=== PATIENT | male | born 1970 | race Caucasian/White ===

== ENCOUNTER 2021-07-05 02:09 | Day surgery (SDC) | payer OTHER, SELFPAY ==
[2021-07-02 10:04] VITALS: BMI 33.3
--- NOTE | 2021-07-02 10:13 | PC.NURSE ---
Report to the Outpatient Waiting Room, entrance under the green pavilion located off [facility], at time 1000 on date 07/05/21. OR Time: 1200. - You and your visitor will be asked a series of questions to screen for COVID 19 for your protection. - A mask is required within the hospital. One visitor will be allowed to accompany the patient into the hospital. Patients visitor will be instructed to remain with patient at all times or leave the building. We will allow the visitor to come back to the postoperative area when patient is ready. Preoperative COVID Testing Requirements: BEING DONE 07/02 AND SENDING RESULTS No COVID Test needed if: (proof is required; if not received patient will have Rapid Test prior to entry) - Patient has received COVID Vaccine at least 14 days prior to procedure date or - Patient has positive COVID test result within last 90 days of surgery date. COVID Test needed if above criteria is not met If not COVID vaccinated a COVID test must be conducted within 72 hours of surgery and patient is asked to isolate self from time of testing until procedure. You will go to the [facility] for your COVID testing. The [facility] site is located at the corner of [address] [facility]. You will only be called if COVID results are positive and your surgeon may reschedule your elective surgery date. Patients may have clear liquids (water, carbonated beverages, clear teas, apple juice) until 3 hours prior to surgery with a maximum of 20 ounces. - No food from midnight until time of surgery Take the following medications with a SIP of water the morning of surgery: BACTRIM Medications to discontinue per physician: N/A Date to take last dose: N/A Please no make-up, nail [place], hairspray, perfume, deodorant, or body powder the day of surgery. No jewelry (including any body piercings) or valuables the day of surgery, leave them at home. Please take a shower or bath the night before, or the morning of, surgery with an antibacterial soap. Wear comfortable, loose fitting clothing. - Jewelry must be removed prior to entering the operating room. Rings and piercings that are not removed may be cut off. - The hospital will not accept responsibility for valuables. - Please leave all valuables, including medications, at home the day of surgery. If you are going home after surgery, a licensed services delivery driver must drive you home. - NO public transportation without another adult. - We recommend that an adult stay with you for 24 hours following discharge. - We also recommend that you do not drive, make important decision, drink alcoholic beverages, or take any drugs that were not prescribed by your health care provider for at least 24 hours after your discharge time. Follow any additional instructions given to you from your surgeon. Telephone instructions given to RADHA STEPHENS and asked if any additional questions and then verbalized understanding. Patient advised to call surgeon office or pre surgery nurse liaison [phone] if any additional questions.
[2021-07-05] VITALS (7 sets, daily range): BP systolic 120–168; BP diastolic 68–105; PULSE 71–93; RESP 10–16; TEMP 36.1–36.3; O2SAT 95–100
[2021-07-05] MEDS: LACTATED RINGERS 1,000 ML 30 ML IV CONT ×2 (10:45→13:18)
--- NOTE | 2021-07-05 10:52 | WPDANESEPPF ---
Anes - Initial Pre Proc Eval Procedure: Operation Date: 07/05/21 12:00 Proposed Procedures p Excision Complicated Pilonidal Cyst - Fco English DO Date/Time: 07/05/21 10:52 Surgeon: Fco English DO Pre Op Diagnosis: pilonidal cyst Patient Data Age: 51 Gender: M Height: 1.88 m Weight: 120 kg Last Vital Signs Temp 36.3 C L 07/05/21 10:45 Pulse 93 07/05/21 10:45 Resp 16 07/05/21 10:45 Pulse Ox 97 07/05/21 10:45 Allergies Allergy/AdvReac Type Severity Reaction Status Date / Time No Known Allergies Allergy Verified 07/05/21 10:25 Home Medications Medication Instructions Recorded Confirmed Type sildenafil 100 mg tablet 100 mg PO DAILY PRN #10 tablet 05/01/21 07/02/21 Rx testosterone cypionate 200 mg/mL 150 mg IM WEEKLY #10 ml 05/03/21 07/02/21 Rx intramuscular oil sulfamethoxazole 800 1 tablet PO Q12H #14 tablet 06/17/21 07/02/21 Rx mg-trimethoprim 160 mg tablet Patient hx anesthesia problems: none Family hx anesthesia problems: none Results Review: All pre-operative results and documents have been reviewed as part of the pre-operative evaluation. FOR[facility]LY [facility] Past Medical History Medical History BMI 33.0-33.9,adult Surgical History Surgical History History of hip replacement, total History of surgical removal of pilonidal cyst Family History Family History Father Lung disease Mother Diabetes mellitus Other Cerebrovascular accident Social History Social History Smoking packs per day: 1 Smoking cigarettes per day: 20.0 Years smoked: 15 Smoking pack-years: 15.00 Smoking status: Current some day smoker Tobacco type: cigarettes and e-cigarettes/vaping Alcohol intake: former Alcohol use details: QUIT 2020 Substance use: never Substance use type: does not use Living arrangements: with family 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 Gender identity (if verbalized by the patient): Male Sexual Orientation (if Verbalized by the Patient): Straight or Heterosexual Spiritual care concerns: No Agree to blood products: Yes Dulce - Cayla Final PreProcedure Day of Procedure 07/05/21 10:52 Patient weight: obese Heart: regular rate and rhythm Lungs: clear to auscultation and normal air movement Airway: Mallampati scale class II Neurological: alert and oriented Last oral intake: >/= 8 hours ASA classification: II Emergent: no Anesthetic plan: proceed Anesthesia type and monitoring: general ETT and standard monitoring Results Review: All pre-operative results and documents have been reviewed as part of the pre-operative evaluation. Informed Consent: The patient's anesthetic plan and its attendant risks and benefits were discussed with the patient/family/POA. Questions were solicited and answers provided to the satisfaction of the patient/family/POA.
--- NOTE | 2021-07-05 11:48 | WPDHPUPDATE1 ---
History and Physical Update Update Date/Time: 07/05/21 11:48 History and Physical has been reviewed, including an updated exam of the patient. There are NO changes in the patient's condition. Risks, benefits, and alternatives have been discussed and questions answered. Patient agrees to proceed with procedure.
[2021-07-05] MEDS: BUPIVACAINE/EPINEPHRINE 0.25% 10 ML VIAL 30 ML INFILTRATE (12:30)
--- NOTE | 2021-07-05 13:23 | W.PM.PROC2 ---
Procedure Note - Detailed Date of Procedure 07/05/21 Pre-op Diagnosis pilonidal cyst Post-op Diagnosis Same Procedure Performed Excision of complicated pilonidal cyst Surgeon Fco English, DO Anesthesia General and Local ( 0.5% bupivacaine with epinephrine) Indications This is a 51-year-old man who presents with intermittent drainage from a wound near his tailbone for the past 6-8 months. He has not required incision and drainage, but does state that this opens and drains on its frequently. He has had other cysts in other locations and has required excision before. Discussions were made with the patient about his treatment options and decision was made to proceed with excision of complicated pilonidal cyst. Findings The pilonidal cyst was completely excised. Patient had a sinus tract along the midline intergluteal cleft. The lacrimal probe was advanced into the sinus tract and this it appeared to be advancing were prior abscess drainage was noted. A wide excision was made to encompass this entire area. The total length of the incision was about 2 in long. No other tracking or other sinus tracts were observed. The specimen was sent to the lab for pathology. Description of Procedure Procedure as well as risks, benefits, and alternatives were discussed with the patient. Written consent was obtained and placed in chart prior to procedure. Patient was brought back to surgical suite. He was placed supine on operating table. Time-out was done to confirm patient and procedure. he was then intubated by the Anesthesia Department. he was then repositioned to prone jane-knife position on the operating table. his sacral region was prepped and draped in sterile fashion using Betadine prep. 0.5% bupivacaine with epinephrine was infiltrated locally around the pilonidal cyst. Lacrimal probes were used to identify the sinus tracts and probed for the directions that they were tracking. An elliptical incision was then made using a 10 blade scalpel to encompass the entire area. Electrocautery was used for hemostasis and for dissection down deep to the cyst cavity. Careful dissection was made around the entire cyst to excise it completely intact. The cyst was completely removed and sent to the lab for pathology. The wound bed was then inspected. Hemostasis was achieved with electrocautery. A 0.5% bupivacaine with epinephrine was infiltrated deep in the cavity. The wound bed was then irrigated with sterile saline. No other abnormalities were noted. The deep tissue was then reapproximated using 0 Vicryl simple interrupted sutures. The skin edges were then reapproximated using 2 0 Prolene vertical mattress interrupted sutures placed approximately 1 cm apart. Fluff gauze, ABD pad, and Medipore tape were then applied. The patient was then awakened from anesthesia, extubated, and transferred to recovery. Estimated Blood Loss 5 Packing No Pathology Yes ( pilonidal cyst) Complications No immediate complications Condition Stable Disposition Same day
[2021-07-05] MEDS: fentaNYL CITRATE INJ (*CRX) 100 MCG/2 ML VIAL 25 MCG IV PUSH ×2 (13:35→13:44)
== END 2021-07-05 14:45 | disposition home or self-care (01) ==
PROVIDERS: PCP Family Medicine; Visit Provider Surgery
PROC: (CPT 11772; principal; 2021-07-05 12:00)
DX: L05.91 Pilonidal cyst without abscess (principal); F17.210 Nicotine dependence, cigarettes, uncomplicated; F17.290 Nicotine dependence, other tobacco product, uncomplicated; E66.9 Obesity, unspecified; Z68.34 Body mass index [BMI] 34.0-34.9, adult
CPT/HCPCS: 11772; 88305; A9270; J0330; J2250; J2405; J2704; J2710; J3010; J7120

== ENCOUNTER 2021-11-07 16:16 | Outpatient (CLI) | payer OTHER, SELFPAY ==
[2021-11-07 16:47] LABS: Hematocrit 50.1 % (42.0-52.0); Hemoglobin 16.4 g/dL (14.0-18.0); Mean Corpuscular HGB Conc 32.7 g/dl (32-36); Mean Corpuscular Hemoglobin 29.2 pg (26-34); Mean Corpuscular Volume 89.3 fl (80-100); Mean Platelet Volume 9.7 fl (7.4-10.4); Platelet Count Result 216 k/mm3 (150-375); Red Blood Count 5.61 M/mm3 (4.6-6.20); Red Cell Distribution Width 12.7 % (11.5-14.5)
[2021-11-14 00:19] LABS: Testosterone Free 370.7 pg/mL (35.0-155.0); Testosterone Total 1110 ng/dL (250-1100)
== END 2021-11-07 16:17 | disposition home or self-care (01) ==
LOC: ANHLAB 16:18
PROVIDERS: PCP Family Medicine; Visit Provider Nurse Practitioner Family
DX: R79.89 Other specified abnormal findings of blood chemistry (principal)
CPT/HCPCS: 36415; 84402; 84403; 85027

== ENCOUNTER 2021-12-16 11:04 | Outpatient (CLI) | payer OTHER, SELFPAY ==
[2021-12-16 11:33] LABS: Hematocrit 53.3 % (42.0-52.0); Hemoglobin 17.8 g/dL (14.0-18.0); Mean Corpuscular HGB Conc 33.4 g/dl (32-36); Mean Corpuscular Hemoglobin 29.3 pg (26-34); Mean Corpuscular Volume 87.7 fl (80-100); Mean Platelet Volume 9.8 fl (7.4-10.4); Platelet Count Result 216 k/mm3 (150-375); Red Blood Count 6.08 M/mm3 (4.6-6.20); Red Cell Distribution Width 12.6 % (11.5-14.5); White Blood Count 9.4 K/mm3 (4.5-10.0)
[2021-12-21 17:42] LABS: Testosterone Free 107.8 pg/mL (35.0-155.0); Testosterone Total 377 ng/dL (250-1100)
== END 2021-12-16 11:05 | disposition home or self-care (01) ==
PROVIDERS: PCP Family Medicine; Visit Provider Nurse Practitioner Family
DX: R79.89 Other specified abnormal findings of blood chemistry (principal); Z79.890 Hormone replacement therapy
CPT/HCPCS: 36415; 84402; 84403; 85027

== ENCOUNTER 2022-01-01 16:45 | Outpatient (CLI) | payer OTHER, SELFPAY ==
[2022-01-01 17:52] LABS: Hepatitis B Surface Antigen Negative (Negative)
[2022-01-01 17:57] LABS: HAV RESULT Negative (Negative); Hepatitis B Core IgM Result Negative (Negative)
[2022-01-01 18:09] LABS: Hepatitis C Virus Antibody Negative (Negative)
[2022-01-03 15:03] LABS: HIV 1 RNA PCR Not Detected Copies/mL; HIV 1 RNA PCR Not Detected Log cps/mL
== END 2022-01-01 16:46 | disposition home or self-care (01) ==
LOC: ANHLAB 16:46
PROVIDERS: PCP Family Medicine; Visit Provider Nurse Practitioner Family
DX: Z72.51 High risk heterosexual behavior (principal); Z11.4 Encounter for screening for human immunodeficiency virus [HIV]
CPT/HCPCS: 36415; 80074; 87491; 87536; 87591; 87661

== ENCOUNTER 2022-05-27 16:11 | Outpatient (CLI) | payer OTHER, SELFPAY ==
[2022-05-27 16:49] LABS: Hematocrit 55.4 % (42.0-52.0); Hemoglobin 18.4 g/dL (14.0-18.0)
[2022-05-31 17:49] LABS: Testosterone Free 217.4 pg/mL (35.0-155.0); Testosterone Total 902 ng/dL (250-1100)
== END 2022-05-27 16:12 | disposition home or self-care (01) ==
LOC: ANHLAB 16:12
PROVIDERS: PCP Family Medicine; Visit Provider Nurse Practitioner Family
DX: R79.89 Other specified abnormal findings of blood chemistry (principal)
CPT/HCPCS: 36415; 84402; 84403; 85014; 85018

== ENCOUNTER 2022-07-01 10:51 | Outpatient (CLI) | payer OTHER, SELFPAY ==
[2022-07-01 11:14] LABS: Hematocrit 51.6 % (42.0-52.0); Hemoglobin 17.3 g/dL (14.0-18.0)
[2022-07-08 14:09] LABS: Testosterone Free 185.9 pg/mL (35.0-155.0); Testosterone Total 594 ng/dL (250-1100)
== END 2022-07-01 10:52 | disposition home or self-care (01) ==
LOC: ANHLAB 10:53
PROVIDERS: PCP Family Medicine; Visit Provider Nurse Practitioner Family
DX: R79.89 Other specified abnormal findings of blood chemistry (principal)
CPT/HCPCS: 36415; 84402; 84403; 85014; 85018

== ENCOUNTER 2023-04-30 16:31 | Outpatient (CLI) | payer BC, SELFPAY ==
[2023-04-30 16:52] LABS: Hematocrit 55.6 % (42.0-52.0); Hemoglobin 18.2 g/dL (14.0-18.0)
[2023-05-05 13:21] LABS: Testosterone Free 226.2 pg/mL (35.0-155.0); Testosterone Total 894 ng/dL (250-1100)
== END 2023-04-30 16:32 | disposition home or self-care (01) ==
LOC: ANHLAB 16:33
PROVIDERS: PCP Family Medicine; Visit Provider Nurse Practitioner Family
DX: R79.89 Other specified abnormal findings of blood chemistry (principal)
CPT/HCPCS: 36415; 84402; 84403; 85014; 85018

== ENCOUNTER 2023-05-29 14:19 | Outpatient (CLI) | payer BC, SELFPAY ==
[2023-05-29 14:53] LABS: Basophils Absolute Auto 0.1 K/mm3 (0.0-0.1); Basophils Percent Auto 1.2 % (0.2-1.2); Eosinophils Absolute Auto 0.5 K/mm3 (0-0.3); Eosinophils Percent Auto 6.3 % (0-4.4); Hematocrit 55.4 % (42.0-52.0); Hemoglobin 18.3 g/dL (14.0-18.0); Immature Granulocyte Absolute 0.05 K/mm3 (0.00-0.031); Immature Granulocyte Percent A 0.6 % (0-0.5); Lymphocytes Absolute Auto 2.51 K/mm3 (0.9-3.2); Lymphocytes Percent Auto 29.2 % (18.3-44.2); Mean Corpuscular Hemoglobin 29.6 pg (26-34); Mean Corpuscular Volume 89.6 fl (80-100); Mean Platelet Volume 9.5 fl (7.4-10.4); Monocytes Absolute Auto 0.5 K/mm3 (0.1-0.6); Monocytes Percent Auto 5.3 % (2.6-8.5); Neutrophils Percent Auto 57.4 % (45.5-73.1); Platelet Count Result 214 k/mm3 (150-375); Red Blood Count 6.18 M/mm3 (4.6-6.20); Red Cell Distribution Width 12.4 % (11.5-14.5); White Blood Count 8.6 K/mm3 (4.5-10.0)
[2023-05-29 15:48] LABS: Anion Gap 7 mmol/L (8-16); Blood Urea Nitrogen 17 mg/dL (9-20); Calcium 8.8 mg/dL (8.4-10.2); Carbon Dioxide 27 mmol/L (22-30); Chloride 106 mmol/L (98-107); Cholesterol 224 mg/dL (0-200); Estimated Glomerular Filt Rate > 60; Glucose 101 mg/dL (65-110); HDL Direct 30 mg/dL; Potassium 4.1 mmol/L (3.4-5.0); Sodium 140 mmol/L (137-145); Triglycerides 274 mg/dL (<150)
[2023-05-29 15:59] LABS: LDL Cholesterol Direct 124 mg/dL
[2023-05-29 16:18] LABS: Prostate Specific Antigen 1.2 ng/mL (< OR = 4.0)
[2023-06-04 09:39] LABS: Testosterone Free 179.8 pg/mL (35.0-155.0); Testosterone Total 737 ng/dL (250-1100)
== END 2023-05-29 14:20 | disposition home or self-care (01) ==
LOC: ANHLAB 14:21
PROVIDERS: PCP Family Medicine; Visit Provider Physician Assistant Medical
DX: E78.5 Hyperlipidemia, unspecified (principal); R79.89 Other specified abnormal findings of blood chemistry; I10 Essential (primary) hypertension; Z79.890 Hormone replacement therapy; Z12.5 Encounter for screening for malignant neoplasm of prostate
CPT/HCPCS: 36415; 80048; 80061; 84153; 84402; 84403; 85025; G0103